=== PATIENT | male | born 1960 | race Caucasian/White ===

== ENCOUNTER 2019-02-20 14:48 | Outpatient (CLI) | payer OTHER ==
--- NOTE | 2019-02-20 15:22 | ULT ---
BILATERAL RENAL ULTRASOUND: HISTORY: Chronic renal disease FINDINGS: The right kidney measures 9.4 cm in length and the left kidney measures 11.6 cm in length. No focal m ass or hydronephrosis is seen on either side. Cortical echogenicity and thickness is normal. Urinary bladder is unremarkable. IMPRESSION: Size discrepancy in the kidneys, otherwise unremarkable exam
== END 2019-02-20 14:49 | disposition home or self-care (01) ==
LOC: BICULT 14:48
PROVIDERS: ATTEND Family Medicine
DX: E11.22 Type 2 diabetes mellitus with diabetic chronic kidney disease (principal); N18.3 Chronic kidney disease, stage 3 (moderate)
CPT/HCPCS: 76770

== ENCOUNTER 2020-11-30 14:22 | Outpatient (CLI) | payer BC ==
[~2020-11-30 14:22] MED LIST: Iopamidol 370 76% 100 ML VIAL ONE
== END 2020-11-30 14:23 | disposition home or self-care (01) ==
LOC: CT 14:22
PROVIDERS: ATTEND Physician Assistant
DX: R10.30 Lower abdominal pain, unspecified (principal); R00.0 Tachycardia, unspecified; R61 Generalized hyperhidrosis; K52.9 Noninfective gastroenteritis and colitis, unspecified
CPT/HCPCS: 74177; Q9967

== ENCOUNTER 2021-06-28 14:02 | Outpatient (CLI) | payer BC | END 2021-06-28 14:03 | disposition home or self-care (01) | LOC: TBSIIMAG 14:02 | PROVIDERS: ATTEND Family Medicine | DX: M47.26 Other spondylosis with radiculopathy, lumbar region (principal); M51.16 Intervertebral disc disorders with radiculopathy, lumbar region; M48.061 Spinal stenosis, lumbar region without neurogenic claudication | CPT/HCPCS: 72148 ==

== ENCOUNTER 2024-01-31 15:32 | Emergency (ER) | payer OTHER ==
[2024-01-31 16:57] LABS: #Basophils 0.07 10x3/uL (0.0-0.2); %Basophils 0.7 % (0.0-1.0); %Eosinophils 1.1 % (0.0-10.0); %Lymphocytes 37.2 % (21.0-51.0); %Monocytes 7.6 % (0.0-10.0); %Neutrophils 52.8 % (42.0-75.0); Hematocrit 37.9 % (42.0-52.0); Hemoglobin 13.3 g/dL (14.0-18.0); Mean Corpuscular HGB CONC 35.1 g/dL (32.0-36.0); Mean Corpuscular Hemoglobin 33.3 pg (27.0-31.0); Mean Corpuscular Volume 94.8 fL (78.0-98.0); Mean Platelet Volume 9.1 fL (7.4-10.4); Platelet Count 229 10x3/uL (130-400); RBC Distribution Width 14.4 % (11.5-14.5)
[2024-01-31 17:11] LABS: Alcohol 349.5 mg/dL (Less than 10)
[2024-01-31 17:13] LABS: ALT (SGPT) 26 U/L (8-55); AST (SGOT) 36 U/L (5-34); Acetaminophen Less than 10 mcg/mL (Less than 10); Albumin 4.3 g/dL (3.4-4.8); Alcohol 348.9 mg/dL (Less than 10); Alkaline Phosphatase 44 U/L (40-110); Anion Gap 19 mmol/L (10-20); BUN (Urea Nitrogen) 21 mg/dL (8.4-25.7); Bilirubin, Total 0.8 mg/dL (0.2-1.2); Calc. Creatinine Clearance 0 mL/min (70-130); Calcium 10.2 mg/dL (7.8-10.44); Carbon Dioxide 24 mmol/L (23-31); Chloride 101 mmol/L (98-107); Estimated GFR 64; Globulin 3.3 g/dL (2.4-3.5); Glucose 171 mg/dL (80-115); Potassium 3.8 mmol/L (3.5-5.1); Protein, Total 7.6 g/dL (5.8-8.1); Salicylate Less than 8.0 mg/dL (Less than 8.0); Sodium 140 mmol/L (136-145)
== END 2024-01-31 16:39 ==
LOC: ERS 15:32
DX: F10.129 Alcohol abuse with intoxication, unspecified (principal); E11.9 Type 2 diabetes mellitus without complications; I10 Essential (primary) hypertension; Y90.8 Blood alcohol level of 240 mg/100 ml or more
CPT/HCPCS: 36415; 36416; 80053; 80307; 85025; 93005; 99284

== ENCOUNTER 2024-02-02 18:59 | Emergency (ER) | payer OTHER ==
[2024-02-02 19:38] LABS: #Basophils 0.03 10x3/uL (0.0-0.2); %Basophils 0.6 % (0.0-1.0); %Eosinophils 0.8 % (0.0-10.0); %Monocytes 10.9 % (0.0-10.0); %Neutrophils 38.5 % (42.0-75.0); Hematocrit 34.4 % (42.0-52.0); Hemoglobin 12.3 g/dL (14.0-18.0); Mean Corpuscular HGB CONC 35.8 g/dL (32.0-36.0); Mean Corpuscular Hemoglobin 33.6 pg (27.0-31.0); Platelet Count 140 10x3/uL (130-400); RBC Distribution Width 14.3 % (11.5-14.5); Red Blood Cell (RBC) Count 3.66 mill/uL (4.70-6.10)
[2024-02-02 19:41] LABS: Bacteria/HPF None Seen HPF (None Seen); Bilirubin Negative (Negative); Blood, Urine Negative (Negative); CAUTI Indications for Culture Pelvic or flank pain; Clarity Clear (Clear); Glucose, Urine (Dipstick) Greater than 1000 mg/dL (Negative); Ketone, Urine Negative (Negative); Leukocyte Negative Leu/uL (Negative); Nitrite Negative (Negative); Protein, Urine (Dipstick) Negative (Neg-Trace); RBC/HPF 0-3 HPF (0-3); Specific Gravity, Urine 1.011 (1.002-1.036); Squamous Epithelial 0-3 HPF (0-3); Urobilinogen Normal mg/dL (Less than 2); WBC/HPF 0-3 HPF (0-3)
[2024-02-02 19:43] LABS: Urine Culture Reflex No No
[2024-02-02 20:00] LABS: ALT (SGPT) 32 U/L (8-55); AST (SGOT) 47 U/L (5-34); Acetaminophen Less than 10 mcg/mL (Less than 10); Albumin 3.8 g/dL (3.4-4.8); Alcohol 370.3 mg/dL (Less than 10); Alkaline Phosphatase 37 U/L (40-110); Anion Gap 17 mmol/L (10-20); BUN (Urea Nitrogen) 13 mg/dL (8.4-25.7); Bilirubin, Total 0.4 mg/dL (0.2-1.2); CK (CPK) 127 U/L (30-200); Calc. Creatinine Clearance 0 mL/min (70-130); Calcium 8.8 mg/dL (7.8-10.44); Carbon Dioxide 24 mmol/L (23-31); Chloride 106 mmol/L (98-107); Estimated GFR 89; Globulin 3.1 g/dL (2.4-3.5); Glucose 195 mg/dL (80-115); Potassium 3.7 mmol/L (3.5-5.1); Protein, Total 6.9 g/dL (5.8-8.1); Salicylate Less than 8.0 mg/dL (Less than 8.0); Sodium 143 mmol/L (136-145)
[2024-02-02 20:02] LABS: Amphetamine Not Detected (NotDetected); Barbiturates Screen Not Detected (NotDetected); Benzodiazepine Screen Not Detected (NotDetected); Cocaine Metabolite Screen Not Detected (NotDetected); Methadone Not Detected (NotDetected); Methamphetamine Not Detected (NotDetected); Opiate Screen Not Detected (NotDetected); Oxycodone Screen Not Detected (NotDetected); Phencyclidine (PCP) Not Detected (NotDetected); THC/Cannabinoid Screen Not Detected (NotDetected); Tricyclic Screen Not Detected (NotDetected)
[2024-02-03] MEDS ORDERED: Lidocaine 10 ML, Aluminum & Magnesium Hydroxide 30 ML SSW SCH (05:15)
== END 2024-02-03 09:51 | disposition home or self-care (01) ==
LOC: ERS 18:59
DX: F10.129 Alcohol abuse with intoxication, unspecified (principal); I10 Essential (primary) hypertension; E11.9 Type 2 diabetes mellitus without complications; F17.220 Nicotine dependence, chewing tobacco, uncomplicated; Y90.8 Blood alcohol level of 240 mg/100 ml or more; Z79.84 Long term (current) use of oral hypoglycemic drugs; Z79.899 Other long term (current) drug therapy
CPT/HCPCS: 36415; 80053; 80306; 80307; 81001; 82550; 84443; 85025; 93005; 96360; 96361

== ENCOUNTER 2024-02-26 19:06 | Emergency (ER) | payer OTHER ==
[2024-02-26 20:22] LABS: #Basophils 0.05 10x3/uL (0.0-0.2); %Basophils 0.4 % (0.0-1.0); %Eosinophils 0.9 % (0.0-10.0); %Lymphocytes 34.2 % (21.0-51.0); %Monocytes 9.3 % (0.0-10.0); %Neutrophils 54.9 % (42.0-75.0); Hematocrit 35.8 % (42.0-52.0); Hemoglobin 12.5 g/dL (14.0-18.0); Mean Corpuscular HGB CONC 34.9 g/dL (32.0-36.0); Mean Corpuscular Hemoglobin 33.8 pg (27.0-31.0); Mean Corpuscular Volume 96.8 fL (78.0-98.0); Mean Platelet Volume 9.5 fL (7.4-10.4); Platelet Count 195 10x3/uL (130-400); RBC Distribution Width 14.6 % (11.5-14.5)
[2024-02-26 20:40] LABS: PTT 24.4 sec (22.9-36.1); Prothrombin Time 12.7 sec (12.0-14.7)
[2024-02-26 20:42] LABS: Lipase 100 U/L (8-78); Magnesium 1.4 mg/dL (1.6-2.6)
[2024-02-26 20:43] LABS: Acetaminophen Less than 10 mcg/mL (Less than 10); Alcohol 383.2 mg/dL (Less than 10); Salicylate Less than 8.0 mg/dL (Less than 8.0)
[2024-02-26 20:44] LABS: ALT (SGPT) 23 U/L (8-55); AST (SGOT) 28 U/L (5-34); Albumin 3.8 g/dL (3.4-4.8); Alkaline Phosphatase 46 U/L (40-110); Anion Gap 22 mmol/L (10-20); BUN (Urea Nitrogen) 24 mg/dL (8.4-25.7); Bilirubin, Total 0.6 mg/dL (0.2-1.2); Calc. Creatinine Clearance 0 mL/min (70-130); Calcium 8.3 mg/dL (7.8-10.44); Carbon Dioxide 17 mmol/L (23-31); Chloride 103 mmol/L (98-107); Estimated GFR 66; Globulin 3.6 g/dL (2.4-3.5); Glucose 218 mg/dL (80-115); Potassium 3.1 mmol/L (3.5-5.1); Protein, Total 7.4 g/dL (5.8-8.1); Sodium 139 mmol/L (136-145)
[2024-02-26 20:47] LABS: Troponin I Less than 0.010 ng/mL (< 0.028)
[2024-02-26 21:05] LABS: Actual Bicarbonate (HCO3v) 15.4 mEq/L (22-28); Base Excess -7.7 mEq/L (-2.0 to +3.0); Calcium, Ionized (venous) 0.99 mmol/L (1.16-1.32); Chloride (VBG) 102 mmol/L (98-106); Hematocrit-VBG 40 % (42.0-52.0); Hemoglobin (Hb) 13.5 g/dL (13.1-17.2); Potassium (VBG) 3.18 mmol/L (3.70-5.30); Sodium 140 mmol/L (133-146); pH (venous) 7.397 (7.32-7.43)
[2024-02-26] MEDS ORDERED: Magnesium 2 GM/50 ML BAG (IN WATER) ONE (21:13)
[2024-02-26] MEDS ORDERED: Potassium Chloride 20 MEQ TAB ONE (21:13)
[2024-02-26 22:38] LABS: Amphetamine Not Detected (NotDetected); Barbiturates Screen Not Detected (NotDetected); Benzodiazepine Screen Not Detected (NotDetected); Cocaine Metabolite Screen Not Detected (NotDetected); Methadone Not Detected (NotDetected); Methamphetamine Not Detected (NotDetected); Opiate Screen Not Detected (NotDetected); Oxycodone Screen Not Detected (NotDetected); Phencyclidine (PCP) Not Detected (NotDetected); THC/Cannabinoid Screen Not Detected (NotDetected); Tricyclic Screen Not Detected (NotDetected)
[2024-02-26 22:39] LABS: Bacteria/HPF None Seen HPF (None Seen); Bilirubin Negative (Negative); Blood, Urine Negative (Negative); CAUTI Indications for Culture Alt mental st,lethar; Clarity Clear (Clear); Glucose, Urine (Dipstick) 100 mg/dL (Negative); Ketone, Urine Negative (Negative); Leukocyte Negative Leu/uL (Negative); Nitrite Negative (Negative); Protein, Urine (Dipstick) Negative (Neg-Trace); RBC/HPF None Seen HPF (0-3); Specific Gravity, Urine 1.006 (1.002-1.036); Squamous Epithelial 0-3 HPF (0-3); Urobilinogen Normal mg/dL (Less than 2); WBC/HPF 0-3 HPF (0-3)
[2024-02-26 22:41] LABS: Urine Culture Reflex No No
[2024-02-26 23:36] LABS: Anion Gap 20 mmol/L (10-20); BUN (Urea Nitrogen) 18 mg/dL (8.4-25.7); Calc. Creatinine Clearance 0 mL/min (70-130); Calcium 8.6 mg/dL (7.8-10.44); Carbon Dioxide 22 mmol/L (23-31); Chloride 105 mmol/L (98-107); Estimated GFR 73; Glucose 201 mg/dL (80-115); Potassium 3.6 mmol/L (3.5-5.1); Sodium 143 mmol/L (136-145)
[2024-02-26 23:41] LABS: Troponin I Less than 0.010 ng/mL (< 0.028)
[2024-02-26] MEDS ORDERED: Thiamine HCl 200 MG/2 ML VIAL ONE (23:57)
== END 2024-02-27 03:32 | disposition home or self-care (01) ==
LOC: ERS 19:06
DX: F10.129 Alcohol abuse with intoxication, unspecified (principal); E87.6 Hypokalemia; E87.29 Other acidosis; E83.42 Hypomagnesemia; E11.9 Type 2 diabetes mellitus without complications; I10 Essential (primary) hypertension; Z79.84 Long term (current) use of oral hypoglycemic drugs; Y90.8 Blood alcohol level of 240 mg/100 ml or more
CPT/HCPCS: 36415; 70450; 71045; 72125; 80053; 80306; 80307; 81001; 82805; 83690; 83735; 84443; 84484; 85025; 85610; 85730; 93005; 94760; 96365; 96366; 96367; J3411; J3475

== ENCOUNTER 2024-02-28 19:48 | Emergency (ER) | payer OTHER ==
[2024-02-28 20:36] LABS: Bacteria/HPF None Seen HPF (None Seen); Bilirubin Negative (Negative); Blood, Urine Negative (Negative); CAUTI Indications for Culture Pelvic or flank pain; Clarity Clear (Clear); Glucose, Urine (Dipstick) Greater than 1000 mg/dL (Negative); Ketone, Urine Negative (Negative); Leukocyte Negative Leu/uL (Negative); Nitrite Negative (Negative); Protein, Urine (Dipstick) 10 mg/dL (Neg-Trace); RBC/HPF None Seen HPF (0-3); Specific Gravity, Urine 1.016 (1.002-1.036); Squamous Epithelial 0-3 HPF (0-3); Urobilinogen Normal mg/dL (Less than 2); WBC/HPF None Seen HPF (0-3); pH, Urine 5.5 (5.0-9.0)
[2024-02-28 20:46] LABS: #Basophils 0.04 10x3/uL (0.0-0.2); %Basophils 0.4 % (0.0-1.0); %Eosinophils 1.4 % (0.0-10.0); %Lymphocytes 28.7 % (21.0-51.0); %Monocytes 6.1 % (0.0-10.0); %Neutrophils 62.9 % (42.0-75.0); Hematocrit 34.4 % (42.0-52.0); Mean Corpuscular HGB CONC 34.9 g/dL (32.0-36.0); Mean Corpuscular Hemoglobin 33.2 pg (27.0-31.0); Mean Corpuscular Volume 95.3 fL (78.0-98.0); Mean Platelet Volume 9.7 fL (7.4-10.4); Platelet Count 195 10x3/uL (130-400); RBC Distribution Width 14.9 % (11.5-14.5); Red Blood Cell (RBC) Count 3.61 mill/uL (4.70-6.10)
[2024-02-28 20:47] LABS: Urine Culture Reflex No No
[2024-02-28 20:48] LABS: Actual Bicarbonate (HCO3v) 25.9 mEq/L (22-28); Base Excess 0.7 mEq/L (-2.0 to +3.0); Calcium, Ionized (venous) 1.04 mmol/L (1.16-1.32); Chloride (VBG) 102 mmol/L (98-106); Hematocrit-VBG 38 % (42.0-52.0); Hemoglobin (Hb) 12.8 g/dL (13.1-17.2); Potassium (VBG) 3.65 mmol/L (3.70-5.30); Sodium 143 mmol/L (133-146); pH (venous) 7.391 (7.32-7.43)
[2024-02-28 21:09] LABS: ALT (SGPT) 25 U/L (Less than 45); AST (SGOT) 36 U/L (11-34); Acetaminophen Less than 10 mcg/mL (Less than 10); Albumin 3.9 g/dL (3.1-4.5); Alcohol 141.6 mg/dL (Less than 10); Alkaline Phosphatase 39 U/L (40-110); Anion Gap 17 mmol/L (10-20); BUN (Urea Nitrogen) 17 mg/dL (8.4-25.7); Bilirubin, Total 0.6 mg/dL (0.3-1.2); Calc. Creatinine Clearance 0 mL/min (70-130); Calcium 8.3 mg/dL (7.8-10.44); Carbon Dioxide 24 mmol/L (23-31); Chloride 105 mmol/L (98-107); Estimated GFR 92; Globulin 2.9 g/dL (2.4-3.5); Glucose 170 mg/dL (80-115); Lipase 147 U/L (8-78); Magnesium 1.2 mg/dL (1.6-2.6); Potassium 3.5 mmol/L (3.5-5.1); Protein, Total 6.8 g/dL (5.8-8.1); Salicylate Less than 8.0 mg/dL (Less than 8.0); Sodium 142 mmol/L (136-145)
[2024-02-28 21:35] LABS: Troponin I Less than 0.010 ng/mL (< 0.028)
[2024-02-28] MEDS ORDERED: Potassium Chloride 20 MEQ TAB ONE (22:12)
[2024-02-28] MEDS ORDERED: Magnesium 2 GM/50 ML BAG (IN WATER) ONE (22:13)
[2024-02-28] MEDS ORDERED: Colchicine 0.6 MG TAB PO SCH (22:45)
== END 2024-02-28 23:25 | disposition home or self-care (01) ==
LOC: ERS 19:48
DX: R07.89 Other chest pain (principal); F10.129 Alcohol abuse with intoxication, unspecified; K29.70 Gastritis, unspecified, without bleeding; E11.9 Type 2 diabetes mellitus without complications; I10 Essential (primary) hypertension; Y90.6 Blood alcohol level of 120-199 mg/100 ml
CPT/HCPCS: 36415; 71045; 80053; 80307; 81001; 82010; 82805; 83690; 83735; 83880; 84484; 85025; 93005; 96374; J3475

== ENCOUNTER 2024-03-18 19:24 | Emergency (ER) | payer OTHER ==
[2024-03-18 20:25] LABS: #Basophils 0.04 10x3/uL (0.0-0.2); %Basophils 0.4 % (0.0-1.0); %Eosinophils 1.9 % (0.0-10.0); %Lymphocytes 47.7 % (21.0-51.0); %Monocytes 11.5 % (0.0-10.0); Hematocrit 34.2 % (42.0-52.0); Hemoglobin 12.3 g/dL (14.0-18.0); Mean Corpuscular Hemoglobin 34.2 pg (27.0-31.0); Mean Platelet Volume 9.5 fL (7.4-10.4); Platelet Count 200 10x3/uL (130-400); RBC Distribution Width 14.5 % (11.5-14.5)
[2024-03-18 20:43] LABS: Lipase 204 U/L (8-78)
[2024-03-18 20:45] LABS: ALT (SGPT) 29 U/L (Less than 45); AST (SGOT) 46 U/L (11-34); Acetaminophen Less than 10 mcg/mL (Less than 10); Albumin 3.6 g/dL (3.1-4.5); Alcohol 435.1 mg/dL (Less than 10); Alkaline Phosphatase 39 U/L (40-110); Anion Gap 22 mmol/L (10-20); BUN (Urea Nitrogen) 17 mg/dL (8.4-25.7); Bilirubin, Total 0.6 mg/dL (0.3-1.2); Calc. Creatinine Clearance 0 mL/min (70-130); Carbon Dioxide 16 mmol/L (23-31); Chloride 103 mmol/L (98-107); Estimated GFR 57; Globulin 3.1 g/dL (2.4-3.5); Glucose 134 mg/dL (80-115); Protein, Total 6.7 g/dL (5.8-8.1); Salicylate Less than 8.0 mg/dL (Less than 8.0); Sodium 138 mmol/L (136-145)
[2024-03-18 20:49] LABS: Troponin I Less than 0.010 ng/mL (< 0.028)
[2024-03-19] MEDS ORDERED: Potassium Chloride 20 MEQ TAB ONE (02:09)
[2024-03-19] MEDS ORDERED: Thiamine HCl 200 MG/2 ML VIAL ONE (02:10)
== END 2024-03-19 06:30 | disposition home or self-care (01) ==
LOC: ERS 19:24
DX: F10.129 Alcohol abuse with intoxication, unspecified (principal); R10.9 Unspecified abdominal pain; E11.9 Type 2 diabetes mellitus without complications; I10 Essential (primary) hypertension; F17.220 Nicotine dependence, chewing tobacco, uncomplicated
CPT/HCPCS: 36415; 70450; 71045; 80053; 80307; 83690; 84484; 85025; 93005; 96361; 96374; J3411